=== PATIENT | female | born 1935 | race Caucasian/White ===

== ENCOUNTER → 2018-02-27 | Outpatient (CLI) | payer MEDICARE, BC ==
[2014-10-14 14:21] VITALS: BMI 20.3
[~2018-02-27] MED LIST: ACYC-57 PO; ALE70 PO; ASPI81TA94 PO; CALC-852 PO; CALC600T72 PO; CEPH250C37 PO; CETI10CA PO; CINN500C12 PO; CIPR-344 PO; CRAN1CAP14 PO; CYAN1000 IJ; CYAN100088 PO; CYCL-332 PO; ESTR0.9T14 PO; FAMO20TA28 PO; FLAX100038 PO; GABA-490 PO; GLUC-198 PO; HYDR-385 PO; IBUP-1671 PO; LEV75 PO; LEVO75TA68 PO; LOR5/325 PO; LOSA50TA72 PO; MAGN400C PO; NIAC500C12 PO; OMEP-125 PO; PER PO; PHEN200T32 PO; POTA99TA10 PO; ZINC50TA43 PO; [UNRECOGNIZED DRUG - CODE] PO
--- NOTE | 2018-03-02 00:30 | RT HOLTER TEST ---
FACILITY: [facility] - [place] PATIENT NAME: CHRIS JONES : [id number] MR: [id number] V: [id number] EXAM DATE: ORDERING PHYSICIAN: CHOLO JO TECHNOLOGIST: BLAYNE Carreon date: 2018-02-27 08:15:00 Duration: 47:45:00 Test Indications: Palpitations Medications: see list [id number] QRS complexes 86 Ventricular ectopics which represent <1 % of total QRS comp. 167 Supraventricular ectopics which represent <1 % of total QRS comp. * Paced QRS complexes which represent % of total QRS comp. VENTRICULAR ECTOPY 86 Isolated 0 Bigeminal Cycles 0 Couplets 0 Runs 0 Beats in Runs * Beats LONGEST at * BPM at :: -- * Beats FASTEST at * BPM at :: -- SUPRAVENTRICULAR ECTOPY 107 Isolated 19 Couplets 6 Runs 22 Beats in Runs 5 Beats LONGEST at 103 BPM at 23:41:44 2018-02-27 4 Beats FASTEST at 117 BPM at 23:35:39 2018-02-27 HEART RATES 50 MIN at 00:53:16 2018-03-01 75 AVG 135 MAX at 13:35:13 2018-02-28 LONGEST RR 1.304 secs at 00:53:10 2018-03-01 S-T LEVELS Channel 1 -12.800 mm MIN at 08:15:00 2018-02-27 -12.800 mm MAX at 08:15:00 2018-02-27 Channel 2 -12.800 mm MIN at 08:15:00 2018-02-27 -12.800 mm MAX at 08:15:00 2018-02-27 Channel 3 -12.800 mm MIN at 08:15:00 2018-02-27 -12.800 mm MAX at 08:15:00 2018-02-27 The patient was in a sinus rhythm throughout the test with occasional asymptomatic ventricular ectopy (VE) and occasional asymptomatic supraventricular ectopy (SVE). There were five 3-5 beat runs of SVE. The fastest rate was 117 beat s per minute (bpm). The patient had 3 symptom reports. All were sinus, but one had a rate of 103 bpm. There were not symptoms reported with the fastest rate of the test. Confirmed by KEVIN FLOR ([id number]) on 03/02/2018 12:30:24 AM Referred By: Overread By: KEVIN FLOR
== END ==
LOC: RESP 01:00
PROVIDERS: ATTEND Family Medicine
DX: R00.2 Palpitations (principal)
CPT/HCPCS: 93225; 93226

== ENCOUNTER → 2018-04-06 | Outpatient (CLI) | payer MEDICARE, BC ==
[2014-10-14 14:21] VITALS: BMI 20.3
--- NOTE | 2018-04-06 16:15 | RADIOLOGY IMAGING REPORT ---
FACILITY: [facility] PATIENT NAME: CHRIS JONES : [id number] MR: [id number] V: [id number] EXAM DATE: [id number] ORDERING PHYSICIAN: CHOLO JO TECHNOLOGIST: Bernadette Fernandez PROCEDURE:BILATERAL DIGITAL SCREENING MAMMOGRAM WITH CAD ASSISTED INTERPRETATION & 3D TOMOSYNTHESIS COMPARISON:Mammograms 04/05/2017 and 03/30/2016. INDICATIONS:SCREENING FINDINGS: Breast tissue demonstrates scattered fibroglandular tissue elements. There are vascular calcifications in both Right and Left breasts, stable. There is no suspicious mass, calcification, or architectural distortion. DIAGNOSTIC CATEGORY 2--BENIGN FINDING. RECOMMENDATIONS: ROUTINE MAMMOGRAM AND CLINICAL EVALUATION. IMPRESSION: BIRADS 2: Benign finding. No mammographic evidence for malignancy. Dictated by: Adam Chow M.D. on 04/06/2018 at 14:45 Transcribed by: LEON on 04/06/2018 at 14:53 Approved by: Adam Chow M.D. on 04/06/2018 at 16:13 [facility]
== END ==
LOC: MAMO 01:26
PROVIDERS: ATTEND Family Medicine
DX: Z12.31 Encounter for screening mammogram for malignant neoplasm of breast (principal); R92.1 Mammographic calcification found on diagnostic imaging of breast
CPT/HCPCS: 77063; 77067

== ENCOUNTER → 2019-04-10 | Outpatient (CLI) | payer MEDICARE, BC ==
[2014-10-14 14:21] VITALS: BMI 20.3
[~2019-04-10] MED LIST changes: +HYDR30CR10 TP; -LOSA50TA72 PO; +LOSA50TA80 PO; +[UNRECOGNIZED DRUG - CODE] PO; -[UNRECOGNIZED DRUG - CODE] PO
--- NOTE | 2019-04-10 17:12 | RADIOLOGY IMAGING REPORT ---
FACILITY: [facility] - [place] PATIENT NAME: Carmencita Squires : 1935 MR: [id number] V: [id number] EXAM DATE: ORDERING PHYSICIAN: SHENA COLLADO TECHNOLOGIST: Location: [facility] [place] Patient: Carmencita Squires : 1935 Visit/Account:[id number] Date of Sevice: 04/10/2019 US VENOUS LOWER EXT RT HISTORY: Right leg pain, palpable cord felt COMPARISON: None. FINDINGS: Grayscale, duplex and color Doppler interrogation of the right lower extremity deep veins from common femoral vein to proximal calf was completed. The greater saphenous vein in the proximal thigh was ev aluated using similar technique. Common femoral vein - Negative. Femoral vein - Negative. Deep femoral vein - Negative. Popliteal vein - Negative. Visualized deep calf veins - Negative. Popliteal fossa: Negative. Greater saphenous vein : At the level of the knee, there is occlusive clot present over short segment within the greater saphenous vein IMPRESSION: No evidence of DVT Thrombus is noted within the greater saphenous vein at the level of the knee. The provider's office has been made aware that the report is available by an Imaging Services Coordin ator on 04/10/2019 5:06 PM. Report Dictated By: Williams Seay at 04/10/2019 5:04 PM Report E-Signed By: Williams Seay at 04/10/2019 5:06 PM WSN:[id number]
== END ==
LOC: US 15:37
PROVIDERS: ATTEND Family Medicine
DX: I82.811 Embolism and thrombosis of superficial veins of right lower extremity (principal)

== ENCOUNTER 2019-04-19 05:55 | Emergency (ER) | payer MEDICARE, BC ==
[2014-10-14 14:21] VITALS: Wt 49.0 kg
[~2019-04-19 05:55] MED LIST changes: -OMEP-125 PO; +OMEP-126 PO
--- NOTE | 2019-04-19 05:58 | ER Report ---
History and Physical Time Seen By MD: 05:56 (JESSICA MEYER DO) HPI/ROS CHIEF COMPLAINT: Chest pain, shortness of breath HISTORY OF PRESENT ILLNESS: Patient is an 83-year-old female here with complaints of chest pain, shortness of breath which started this morning at approximately 05:00. Patient was preparing to volunteer at the hospital when she noticed upper back pain, chest tightness, shortness of breath. Patient reports a recent history of a blood clot in the legs on April 10 on duplex imaging however upon further review the patient did have a greater saphenous clot consistent with superficial thrombophlebitis of the right leg up to the level of the knee. Patient is afebrile, hemodynamically stable at time of evaluation. REVIEW OF SYSTEMS: Constitutional: No fever, no chills. Eyes: No discharge. ENT: No sore throat. Cardiovascular: + chest pain, no palpitations. Respiratory: + cough, + shortness of breath. Gastrointestinal: No abdominal pain, no vomiting. Genitourinary: No hematuria. Musculoskeletal: No back pain. Skin: No rashes. Neurological: No headache. (JESSICA MEYER DO) Allergies: Coded Allergies: Sulfa (Sulfonamide Antibiotics) (Verified Allergy, Intermediate, HIVES, 04/19/19) Penicillins (Verified Allergy, Mild, 04/19/19) Uncoded Allergies: ADHESIVES (Allergy, Mild, SKIN TEARS, 02/12/08) EGGS (Allergy, Mild, 02/12/08) Home Meds Reported Medications Ranitidine Hcl (ZANTAC) 150 Mg Tablet, 75 MG PO PRN, TAB 04/19/19 Midodrine Hcl (MIDODRINE HCL) 2.5 Mg Tablet, 2.5 MG PO PRN for hypotension 04/19/19 Aspirin (ASPIR 81) 81 Mg Tablet.dr, 162 MG PO QDAY, TAB 04/19/19 Cinnamon Bark (CINNAMON) 500 Mg Capsule, 500 MG PO DAILY, CAPSULE 03/23/14 Calcium Carbonate/Vitamin D3 (CALCIUM + VITAMIN D TABLET) 1 Each Tablet, 2 EACH PO DAILY 03/23/14 Cyanocobalamin (Vitamin B-12) (B-12) 1,000 Mcg Tablet.er, 1000 MCG PO DAILY 03/23/14 Cetirizine Hcl (ALLERGY RELIEF) 10 Mg Capsule, 10 MG PO DAILY PRN for CONGESTION, CAPSULE 5/10/14 Levothyroxine Sodium (SYNTHROID) 75 Mcg Tablet, 75 MCG PO QDAY 03/23/14 Discontinued Reported Medications Aspirin (ASPIRIN) 81 Mg Tab.chew, 81 MG PO BID, TAB.CHEW TAKE 1 TABLET BY MOUTH EVERY DAY 03/23/14 Discontinued Scripts Hydrocortisone 2.5 % 30 GM CREAM (Hydrocortisone 2.5 % 30 GM CREAM) 2.5 % Cream.appl, 1 DAV TP BID for 30 Days, #1 TUBE 0 Refills Prov:TIESHA ALEJANDRO NPC 12/08/18 Hx Smoking: No Smoking Status: Never Smoker Exposure to Second Hand Smoke?: No Hx Substance Use Disorder: No (JESSICA MEYER DO) Constitutional Vital Sign - Last 24 Hours 04/19/19 05:59 Temp 97.5 Pulse 88 Resp 22 B/P (MAP) 156/74 Pulse Ox 96 O2 Delivery Room Air (TOBY WEST MD) Physical Exam General Appearance: The patient is alert, has no immediate need for airway protection and no signs of toxicity. Uncomfortable appearing Eyes: Pupils equal and round no pallor or injection. ENT, Mouth: Mucous membranes are moist. Respiratory: There are no retractions, lungs are clear to auscultation. Cardiovascular: Regular rate and rhythm. Gastrointestinal: Abdomen is soft and non tender, no masses, bowel sounds normal. Neurological: No focal neurological deficits on examination Skin: Warm and dry, no rashes. Musculoskeletal: Neck is supple non tender. Extremities are nontender, nonswollen and have full range of motion. DIFFERENTIAL DIAGNOSIS: After history and physical exam differential diagnosis was considered for chest pain including but not limited to myocardial ischemia, pericarditis pulmonary embolus, chest wall pain, pleural inflammation and pulmonary infectious causes. (JESSICA MEYER DO) Medical Decision Making Data Points Result Diagram: 04/19/19 0618 04/19/19 0618 Laboratory Hematology Test 04/19/19 06:18 Red Blood Count 4.85 M/uL (4.17-5.56) Mean Corpuscular Volume 86.2 fL (80.0-96.0) Mean Corpuscular Hemoglobin 28.6 pg (26.0-33.0) Mean Corpuscular Hemoglobin Concent 33.2 g/dL (32.0-36.0) Red Cell Distribution Width 15.1 % (11.5-14.5) Mean Platelet Volume 7.7 fL (7.2-11.1) Neutrophils (%) (Auto) 47.9 % (39.4-72.5) Lymphocytes (%) (Auto) 34.2 % (17.6-49.6) Monocytes (%) (Auto) 8.9 % (4.1-12.4) Eosinophils (%) (Auto) 6.6 % (0.4-6.7) Basophils (%) (Auto) 2.4 % (0.3-1.4) Nucleated RBC Relative Count (auto) 0.0 /100WBC Neutrophils # (Auto) 3.1 K/uL (2.0-7.4) Lymphocytes # (Auto) 2.2 K/uL (1.3-3.6) Monocytes # (Auto) 0.6 K/uL (0.3-1.0) Eosinophils # (Auto) 0.4 K/uL (0.0-0.5) Basophils # (Auto) 0.2 K/uL (0.0-0.1) Nucleated RBC Absolute Count (auto) 0.00 K/uL Sodium Level 142 mmol/L (137-145) Potassium Level 3.9 mmol/L (3.5-5.0) Chloride Level 107 mmol/L (98-107) Carbon Dioxide Level 26 mmol/L (22-31) Blood Urea Nitrogen 23 mg/dl (7-18) Creatinine 1.00 mg/dl (0.52-1.04) Glomerular Filtration Rate Calc 52.7 Random Glucose 98 mg/dl (75-110) Calcium Level 9.1 mg/dl (8.4-10.2) Total Bilirubin 0.8 mg/dl (0.2-1.3) Aspartate Amino Transf (AST/SGOT) 26 U/L (0-35) Alanine Aminotransferase (ALT/SGPT) 27 U/L (0-56) Alkaline Phosphatase 99 U/L (0-126) Troponin I < 0.012 ng/ml B-Type Natriuretic Peptide 54 pg/ml (0-100) Total Protein 6.8 g/dl (6.3-8.2) Albumin 4.0 g/dl (3.5-5.0) Chemistry Test 04/19/19 06:18 White Blood Count 6.4 k/uL (4.5-11.0) Red Blood Count 4.85 M/uL (4.17-5.56) Hemoglobin 13.9 g/dL (12.0-16.0) Hematocrit 41.8 % (34.0-47.0) Mean Corpuscular Volume 86.2 fL (80.0-96.0) Mean Corpuscular Hemoglobin 28.6 pg (26.0-33.0) Mean Corpuscular Hemoglobin Concent 33.2 g/dL (32.0-36.0) Red Cell Distribution Width 15.1 % (11.5-14.5) Platelet Count 336 K/uL (150-450) Mean Platelet Volume 7.7 fL (7.2-11.1) Neutrophils (%) (Auto) 47.9 % (39.4-72.5) Lymphocytes (%) (Auto) 34.2 % (17.6-49.6) Monocytes (%) (Auto) 8.9 % (4.1-12.4) Eosinophils (%) (Auto) 6.6 % (0.4-6.7) Basophils (%) (Auto) 2.4 % (0.3-1.4) Nucleated RBC Relative Count (auto) 0.0 /100WBC Neutrophils # (Auto) 3.1 K/uL (2.0-7.4) Lymphocytes # (Auto) 2.2 K/uL (1.3-3.6) Monocytes # (Auto) 0.6 K/uL (0.3-1.0) Eosinophils # (Auto) 0.4 K/uL (0.0-0.5) Basophils # (Auto) 0.2 K/uL (0.0-0.1) Nucleated RBC Absolute Count (auto) 0.00 K/uL Glomerular Filtration Rate Calc 52.7 Calcium Level 9.1 mg/dl (8.4-10.2) Total Bilirubin 0.8 mg/dl (0.2-1.3) Aspartate Amino Transf (AST/SGOT) 26 U/L (0-35) Alanine Aminotransferase (ALT/SGPT) 27 U/L (0-56) Alkaline Phosphatase 99 U/L (0-126) Troponin I < 0.012 ng/ml B-Type Natriuretic Peptide 54 pg/ml (0-100) Total Protein 6.8 g/dl (6.3-8.2) Albumin 4.0 g/dl (3.5-5.0) Coagulation Test 04/19/19 06:18 (TOBY WEST MD) EKG/Imaging EKG Interpretation 12 lead EKG: Normal sinus rhythm, ventricular rate 65 bpm, QTC 422, no ischemic changes or arrhythmias identified. Rhythm: normal sinus rhythm Amonate: normal QRS: normal ST segments: normal (JESSICA MEYER DO) ED Course/Re-evaluation ED Course Patient is an 83-year-old female here with complaints of chest pain, back pain, shortness of breath with a recent history of a diagnosis of a superficial thrombophlebitis of the right leg. Patient is hemodynamically stable at time of evaluation, afebrile. Due to patient's history of clot formation albeit superficial in nature, and her current complaints of chest tightness, chest pain and shortness breath and back pain, decision was made to complete a CT angiogram of the chest. Labs, IV fluid bolus were ordered including cardiac enzymes.. Patient was signed out to Dr. West at shift change pending CT PE study, labs. Decision to Disposition Date: Apr 19, 2019 Decision to Disposition Time: 07:00 (JESSICA MEYER DO) ED Course Medical decision-making 83-year-old female endorsed me by Dr. Meyer for disposition pending CT chest angiography patient with chest discomfort as well as some mild shortness of breath CT angiography shows no abnormality EKG troponin cardiac markers all negative BNP negative most likely this is muscular skeletal with a potential anxiety component patiently discharge diagnosis shortness of breath Decision to Disposition Date: Apr 19, 2019 Decision to Disposition Time: 07:40 (TOBY WEST MD) Depart Departure Latest Vital Signs Vital Signs Date Time Temp Pulse Resp B/P (MAP) Pulse Ox O2 Delivery O2 Flow Rate FiO2 04/19/19 05:59 97.5 88 22 156/74 96 Room Air (TOBY WEST MD) Impression: Primary Impression: Shortness of breath Condition: Improved Disposition: HOME OR SELF-CARE Referrals: CHOLO JO MD (PCP) 5 Days Patient Instructions: Chest Pain (DC) JESSICA MEYER DO Apr 19, 2019 05:57 TOBY WEST MD Apr 19, 2019 07:41
[2019-04-19] MEDS ORDERED: MIDO2.5T12 PO (06:07)
[2019-04-19] MEDS ORDERED: RANI-54 PO (06:07)
[2019-04-19] MEDS ORDERED: ASPI-1471 PO (06:07)
[2019-04-19] MEDS ORDERED: NS(*) 0.9% 1000 ML BAG 1,000 ML IV ONE (06:11)
[2019-04-19 06:29] LABS: PLATELET COUNT, AUTOMATED 336 K/uL (150-450)
[2019-04-19] MEDS ORDERED: IOPAMIDOL 76% 100 ML INFUS BTL 100 ML ONE (06:29)
[2019-04-19] MEDS ORDERED: NS(*) 0.9% 50 ML BAG 50 ML ONE (06:29)
--- NOTE | 2019-04-19 06:34 | EKG ---
FACILITY: [facility] PATIENT NAME: CHRIS JONES : [id number] MR: [id number] V: [id number] EXAM DATE: ORDERING PHYSICIAN: JESSICA REY TECHNOLOGIST: LAKESHIA Test Reason : CP Blood Pressure : / mmHG Vent. Rate : 065 BPM Atrial Rate : 065 BPM P-R Int : 182 ms QRS Dur : 074 ms QT Int : 406 ms P-R-T Axes : 086 026 055 degrees QTc Int : 422 ms Normal sinus rhythm Normal ECG When compared with ECG of 27-SEP-2014 16:37, No significant change was found Confirmed by Jayro Crawford ([id number]) on 04/19/2019 7:34:02 AM Referred By: Confirmed By:Jayro Medrano
--- NOTE | 2019-04-19 07:34 | RADIOLOGY IMAGING REPORT ---
FACILITY: [facility] PATIENT NAME: Carmencita Squires : 1935 MR: [id number] V: [id number] EXAM DATE: ORDERING PHYSICIAN: JESSICA REY TECHNOLOGIST: Location: [facility] Patient: Carmencita Squires : 1935 Visit/Account:[id number] Date of Sevice: 04/19/2019 CT angiogram of the chest: Indication: Chest pain and dyspnea. History of emboli. Technique: Helical CT was performed through the chest following IV contrast enhancement with 75 cc of Isovue 370. Multiplanar reconstructions and MIP images are reviewed. One of the following dose optimization techniques was utilized in the performance of this exam: Autom ated exposure control; adjustment of the mA and/or kV according to the patient's size; or use of an i terative reconstruction technique. Specific details can be referenced in the facility's radiology CT exam operational policy. Comparison: None available. Pulmonary arteries: There is uniform contrast enhancement. There are no signs of acute or chronic pul monary emboli. Aorta and great vessels: Atherosclerotic calcification and mild plaque is observed in the thoracic ao rta. There are no signs of dissection or aneurysm. Heart and pericardial soft tissues: Unremarkable. Mediastinal soft tissues: Small hiatal hernia. No evidence of mass or lymph node enlargement. Lung holland: There are mild emphysematous changes and mild parenchymal scarring in the apices. No acu te parenchymal process is identified. Pleural spaces: There is no evidence of effusion, focal pleural thickening, or pneumothorax. Skeletal structures: There are mild degenerative changes in the spine. No acute skeletal deformity is identified. Upper abdomen: Unremarkable. IMPRESSION: No evidence of pulmonary emboli. No acute parenchymal or pleural process. Report Dictated By: Jimenez Pastrana MD at 04/19/2019 7:17 AM Report E-Signed By: Jimenez Pastrana MD at 04/19/2019 7:30 AM WSN:[id number]
[2019-04-19 07:49] LABS: INR 0.98
[2019-04-19 08:00] VITALS: BP 158/70
== END 2019-04-19 08:15 | disposition home or self-care (01) ==
LOC: ER 06:35
DX: R06.02 Shortness of breath (principal)
CPT/HCPCS: 71275; 83880; 84484; 85025; 85610; 85730; 93005; 96360; 96361; 99284; J7030; J7050; Q9967; 82040; 82247; 82310; 82374; 82435; 82565; 82947; 84075; 84132; 84155; 84295; 84450; 84460; 84520